=== PATIENT | female | born 1960 | race Caucasian/White ===

== ENCOUNTER 2023-02-05 07:40 | Day surgery (SDC) | payer OTHER | END 2023-02-05 22:51 | disposition home or self-care (01) | LOC: CT 07:40 | DX: I25.10 Atherosclerotic heart disease of native coronary artery without angina pectoris (principal); I25.84 Coronary atherosclerosis due to calcified coronary lesion; R07.89 Other chest pain; R00.1 Bradycardia, unspecified; E03.9 Hypothyroidism, unspecified; Z88.5 Allergy status to narcotic agent; Z79.899 Other long term (current) drug therapy | CPT/HCPCS: 75574; Q9967 ==